=== PATIENT | male | born 1965 | race Caucasian/White ===

== ENCOUNTER 2016-06-29 07:15 | Emergency (ER) | payer BC ==
[2016-06-29] MEDS ORDERED: Albuterol 2.5 MG/3 ML NEB.SOL* (0.083%) INH ONE (08:19)
[2016-06-29] MEDS ORDERED: predniSONE TAB* 20 MG PO ONE ×2 (08:20→08:47)
--- NOTE | 2016-06-29 08:39 | UC ---
Respiratory Complaint HPI - HPI Summary HPI Summary: patient has hx of asthma, was experienceing increased wheezing and SOB this weekend due to exposure to fumes. presnets today SOB and wheezing, denies any other symptoms. - History of Current Complaint Chief Complaint: UCAsthma Stated Complaint: BREATHING COMPLAINT Time Seen by Provider: 06/29/16 08:12 Hx Obtained From: Patient Onset/Duration: Sudden Onset, Lasting Days Timing: Constant Severity Initially: Mild Severity Currently: Moderate Pain Intensity: 6 Pain Scale Used: 0-10 Numeric Character: Cough: Nonproductive Aggravating Factors: Allergens Alleviating Factors: Bronchodilator Associated Signs And Symptoms: Positive: Wheezing - Risk Factors Pulmonary Embolism Risk Factors: Negative Cardiac Risk Factors: Negative Pseudomonas Risk Factors: Negative Tuberculosis Risk Factors: Negative - Allergies/Home Medications Allergies/Adverse Reactions: Allergies Allergy/AdvReac Type Severity Reaction Status Date / Time Montelukast [From Singulair] Allergy See Comment Verified 06/29/16 07:49 Amoxicillin [From Augmentin] AdvReac Unknown Nausea And Verified 06/29/16 07:49 Vomiting Clavulanic Acid AdvReac Unknown Nausea And Verified 06/29/16 07:49 [From Augmentin] Vomiting dogs Allergy Mild Sneezing Uncoded 10/30/15 18:19 pollen Allergy Mild Sneezing Uncoded 10/30/15 18:19 ragweed Allergy Mild Sneezing Uncoded 10/30/15 18:19 trees Allergy Mild Sneezing Uncoded 10/30/15 18:19 PMH/Surg Hx/FS Hx/Imm Hx Previously Healthy: Yes Endocrine History Of: Denies: Diabetes, Thyroid Disease Cardiovascular History Of: Denies: Cardiac Disorders, Hypertension Respiratory History Of: Reports: COPD, Asthma - AND ALLERGIES GI/ History Of: Denies: Ulcer - Surgical History Surgical History: Yes Surgery Procedure, Year, and Place: Right knee repair - Family History Known Family History: Positive: None, Respiratory Disease - Social History Alcohol Use: Daily Alcohol Amount: 6-8 BEERS/DAY Substance Use Type: None Smoking Status (MU): Former Smoker Type: Cigars Amount Used/How Often: occ cigar Length of Time of Smoking/Using Tobacco: started at age 20 Have You Smoked in the Last Year: Yes When Did the Patient Quit Smoking/Using Tobacco: 2009-cigg - Immunization History Most Recent Influenza Vaccination: no Review of Systems Constitutional: Negative Skin: Negative Eyes: Negative ENT: Negative Respiratory: Shortness Of Breath, Cough Cardiovascular: Negative Gastrointestinal: Negative Genitourinary: Negative Motor: Negative Neurovascular: Negative Musculoskeletal: Negative Neurological: Negative Psychological: Negative All Other Systems Reviewed And Are Negative: Yes Physical Exam Triage Information Reviewed: Yes Appearance: No Pain Distress, Well-Nourished, Ill-Appearing Vital Signs: Initial Vital Signs Temp 97.9 F 06/29/16 07:37 Pulse 78 06/29/16 07:37 Resp 16 06/29/16 07:37 BP 147/90 06/29/16 07:37 Pulse Ox 95 06/29/16 07:37 Vital Signs Reviewed: Yes Eye Exam: Normal Eyes: Positive: Conjunctiva Clear ENT Exam: Normal ENT: Positive: Normal ENT inspection, Hearing grossly normal, Pharynx normal, TMs normal Dental Exam: Normal Neck exam: Normal Neck: Positive: Supple, Nontender, No Lymphadenopathy Respiratory: Positive: Chest non-tender, No accessory muscle use, Respiratory distress - mild, Stridor, Wheezing Cardiovascular Exam: Normal Cardiovascular: Positive: RRR, No Murmur, Pulses Normal Abdominal Exam: Normal Abdomen Description: Positive: Nontender, No Organomegaly, Soft Bowel Sounds: Positive: Present Musculoskeletal Exam: Normal Musculoskeletal: Positive: Strength Intact, ROM Intact, No Edema Neurological Exam: Normal Neurological: Positive: Alert, Muscle Tone Normal Psychological Exam: Normal Skin Exam: Normal UC Diagnostic Evaluation - Laboratory O2 Sat by Pulse Oximetry: 95 Respiratory Course/Dx - Course Course Of Treatment: hx obtained, exam performed, medication given with good results. medication prescribed. - Differential Dx/Diagnosis Differential Diagnosis/HQI/PQRI: Asthma, Bronchitis, Laryngitis, Sinusitis Provider Diagnoses: asthma exacerbation Discharge - Discharge Plan Condition: Stable Disposition: HOME Patient Education Materials: Asthma (ED) Additional Instructions: take the medication as prescribed. use your nebulizers every 4 hours as needed. Avoid the triggers as much as possible. follow upw ith any increase shortness of breath.
[2016-06-29 08:42] VITALS: BP 146/93
== END 2016-06-29 08:53 | disposition home or self-care (01) ==
LOC: UCEAST 07:15
DX: J45.901 Unspecified asthma with (acute) exacerbation (principal); Z88.1 Allergy status to other antibiotic agents; Z88.0 Allergy status to penicillin; Z88.8 Allergy status to other drugs, medicaments and biological substances; Z87.891 Personal history of nicotine dependence
CPT/HCPCS: 99212; G0463; J7512

== ENCOUNTER 2016-07-31 17:43 | Emergency (ER) | payer BC ==
[2016-07-31 18:47] VITALS: BP 126/71
[2016-07-31] MEDS ORDERED: predniSONE TAB* 20 MG PO ONE (19:11)
[2016-07-31] MEDS ORDERED: Albuterol/Ipratropium NEB.SOL* Albuterol 2.5 MG/Ipratropium 0.5 MG 3 ML INH ONE (19:11)
--- NOTE | 2016-07-31 19:11 | UC ---
Respiratory Complaint HPI - HPI Summary HPI Summary: chest congestion and tightness, using mdi and neb every hour no fevers - History of Current Complaint Chief Complaint: UCRespiratory Stated Complaint: URI Time Seen by Provider: 07/31/16 18:58 Hx Obtained From: Patient Onset/Duration: Sudden Onset, Lasting Days - 1, Still Present Timing: Constant Severity Initially: Moderate Severity Currently: Moderate Character: Cough: Nonproductive Aggravating Factors: Exertion, Deep Breaths, Recumbent Position Alleviating Factors: Bronchodilator Associated Signs And Symptoms: Positive: Wheezing. Negative: Dyspnea, Fever, Chills, Pleuritic Chest Pain, Hemoptysis, Dizziness, Calf Pain, Calf Swelling, Edema, URI, Nasal Congestion, Hoarseness, Sinus Discomfort - Allergies/Home Medications Allergies/Adverse Reactions: Allergies Allergy/AdvReac Type Severity Reaction Status Date / Time Montelukast [From Singulair] Allergy See Comment Verified 07/31/16 18:48 Amoxicillin [From Augmentin] AdvReac Unknown Nausea And Verified 07/31/16 18:48 Vomiting Clavulanic Acid AdvReac Unknown Nausea And Verified 07/31/16 18:48 [From Augmentin] Vomiting dogs Allergy Mild Sneezing Uncoded 07/31/16 18:48 pollen Allergy Mild Sneezing Uncoded 07/31/16 18:48 ragweed Allergy Mild Sneezing Uncoded 07/31/16 18:48 trees Allergy Mild Sneezing Uncoded 07/31/16 18:48 PMH/Surg Hx/FS Hx/Imm Hx Previously Healthy: No Endocrine History Of: Denies: Diabetes, Thyroid Disease Cardiovascular History Of: Denies: Cardiac Disorders, Hypertension Respiratory History Of: Reports: COPD, Asthma - AND ALLERGIES GI/ History Of: Denies: Ulcer - Surgical History Surgical History: Yes Surgery Procedure, Year, and Place: Right knee repair - Family History Known Family History: Positive: None, Respiratory Disease - Social History Occupation: Employed Full-time Lives: With Family Alcohol Use: Daily Alcohol Amount: 6-8 BEERS/DAY Substance Use Type: None Smoking Status (MU): Former Smoker Type: Cigars Amount Used/How Often: occ cigar Length of Time of Smoking/Using Tobacco: started at age 20 Have You Smoked in the Last Year: Yes When Did the Patient Quit Smoking/Using Tobacco: 2009-cigg - Immunization History Most Recent Influenza Vaccination: no Review of Systems Constitutional: Negative Skin: Negative Eyes: Negative ENT: Negative Respiratory: Shortness Of Breath, Cough Cardiovascular: Negative Gastrointestinal: Negative Genitourinary: Negative Motor: Negative Neurovascular: Negative Musculoskeletal: Negative Neurological: Negative Psychological: Negative All Other Systems Reviewed And Are Negative: Yes Physical Exam Triage Information Reviewed: Yes Appearance: No Pain Distress, Well-Nourished, Ill-Appearing - mild Vital Signs: Initial Vital Signs Temp 98.3 F 07/31/16 18:40 Pulse 82 07/31/16 18:40 Resp 20 07/31/16 18:40 BP 126/71 07/31/16 18:40 Pulse Ox 96 07/31/16 18:40 Vital Signs Reviewed: Yes Eye Exam: Normal Eyes: Positive: Conjunctiva Clear ENT Exam: Normal ENT: Positive: Normal ENT inspection, Hearing grossly normal, Pharynx normal, TMs normal. Negative: Nasal congestion, Nasal drainage, Tonsillar swelling, Tonsillar exudate, Trismus, Muffled/hoarse voice Neck exam: Normal Neck: Positive: Supple, Nontender, No Lymphadenopathy Respiratory Exam: Normal Respiratory: Positive: Chest non-tender, No respiratory distress, No accessory muscle use, Wheezing Cardiovascular Exam: Normal Cardiovascular: Positive: RRR, No Murmur, Pulses Normal, Brisk Capillary Refill Musculoskeletal Exam: Normal Musculoskeletal: Positive: Strength Intact, ROM Intact, No Edema Neurological Exam: Normal Neurological: Positive: Alert, Muscle Tone Normal, Fatigued Psychological Exam: Normal Skin Exam: Normal UC Diagnostic Evaluation - Laboratory O2 Sat by Pulse Oximetry: 96 Re-Evaluation - Re-Evaluation First Eval Change: Improved - inproved airmovement after neb and prednisone, encouraged pt to modify alcohol use and take a multivitamin with b supplement daily Respiratory Course/Dx - Course Course Of Treatment: prednisone, continue neb and MDI, multi vit with b vitamin , increase fluids, follow with pcp - Differential Dx/Diagnosis Differential Diagnosis/HQI/PQRI: Bronchitis, Exacerbation Of COPD, Laryngitis, Lower Resp Infection, Sinusitis Provider Diagnoses: Acute exacebation of COPD Discharge - Discharge Plan Condition: Stable Disposition: HOME Prescriptions: predniSONE TAB* [Deltasone TAB*] 10 mg PO DAILY #31 tab Patient Education Materials: Asthma (ED), How to Use a Nebulizer (ED), Bronchospasm (ED) Referrals: Marcellus Bello MD [Primary Care Provider] - 5 Days
== END 2016-07-31 20:00 | disposition home or self-care (01) ==
LOC: UCEAST 17:43
DX: J44.1 Chronic obstructive pulmonary disease with (acute) exacerbation (principal); Z88.1 Allergy status to other antibiotic agents; Z88.8 Allergy status to other drugs, medicaments and biological substances; Z87.891 Personal history of nicotine dependence
CPT/HCPCS: 99212; A9270-GY; G0463; J7512

== ENCOUNTER 2016-10-03 15:32 | Emergency (ER) | payer BC ==
[2016-10-03] MEDS ORDERED: methylPREDNISolone 125 MG* 2 ML VIAL IM ONE (16:53)
--- NOTE | 2016-10-03 16:59 | UC ---
Respiratory Complaint HPI - HPI Summary HPI Summary: patient has hx of asthma, was recently started on theophyline, take symbicort and duonebs as needed, he has done 3 duo nebs today withour relief. normally pain is in enter of chest when he is having trouble. ut pain in the sides of his chest bilateraly - History of Current Complaint Chief Complaint: UCAsthma Stated Complaint: COUGH Time Seen by Provider: 10/03/16 16:45 Hx Obtained From: Patient Onset/Duration: Gradual Onset, Lasting Days Timing: Constant Severity Initially: Moderate Severity Currently: Severe Character: Cough: Nonproductive Aggravating Factors: Exertion, Deep Breaths, Recumbent Position Alleviating Factors: Nothing Associated Signs And Symptoms: Positive: Dyspnea, Wheezing, URI Related History: Seasonal Allergies - Allergies/Home Medications Allergies/Adverse Reactions: Allergies Allergy/AdvReac Type Severity Reaction Status Date / Time Montelukast [From Singulair] Allergy See Comment Verified 10/03/16 16:34 Amoxicillin [From Augmentin] AdvReac Unknown Nausea And Verified 10/03/16 16:34 Vomiting Clavulanic Acid AdvReac Unknown Nausea And Verified 10/03/16 16:34 [From Augmentin] Vomiting dogs Allergy Mild Sneezing Uncoded 10/03/16 16:34 pollen Allergy Mild Sneezing Uncoded 10/03/16 16:34 ragweed Allergy Mild Sneezing Uncoded 10/03/16 16:34 trees Allergy Mild Sneezing Uncoded 10/03/16 16:34 Home Medications: Home Medications Theophylline [Theophylline ER] 10/03/16 [History] PMH/Surg Hx/FS Hx/Imm Hx Previously Healthy: Yes Endocrine History Of: Denies: Diabetes, Thyroid Disease Cardiovascular History Of: Denies: Cardiac Disorders, Hypertension Respiratory History Of: Reports: COPD, Asthma - AND ALLERGIES GI/ History Of: Denies: Ulcer - Surgical History Surgical History: Yes Surgery Procedure, Year, and Place: Right knee repair - Family History Known Family History: Positive: None, Respiratory Disease - Social History Alcohol Use: Occasionally Alcohol Amount: 6-8 BEERS/DAY Substance Use Type: None Smoking Status (MU): Former Smoker Type: Cigars Amount Used/How Often: occ cigar Length of Time of Smoking/Using Tobacco: started at age 20 Have You Smoked in the Last Year: Yes When Did the Patient Quit Smoking/Using Tobacco: 2010-cig - Immunization History Most Recent Influenza Vaccination: no Review of Systems Constitutional: Negative Skin: Negative Eyes: Negative ENT: Negative Respiratory: Shortness Of Breath, Cough Cardiovascular: Negative Gastrointestinal: Negative Genitourinary: Negative Motor: Negative Neurovascular: Negative Musculoskeletal: Negative Neurological: Negative Psychological: Negative All Other Systems Reviewed And Are Negative: Yes Physical Exam Triage Information Reviewed: Yes Appearance: Well-Nourished, Ill-Appearing, Pain Distress Vital Signs: Initial Vital Signs Temp 97.2 F 10/03/16 16:28 Pulse 88 10/03/16 16:28 Resp 18 10/03/16 16:28 BP 141/86 10/03/16 16:28 Pulse Ox 96 10/03/16 16:28 Vital Signs Reviewed: Yes Eye Exam: Normal Eyes: Positive: Conjunctiva Clear ENT Exam: Normal ENT: Positive: Hearing grossly normal, Pharynx normal, TMs normal Dental Exam: Normal Neck exam: Normal Neck: Positive: Supple, Nontender, No Lymphadenopathy Respiratory: Positive: Respiratory distress - moderate, winded with talking, Rhonchi, Stridor, Wheezing, Expiration, Inspiration Cardiovascular Exam: Normal Cardiovascular: Positive: RRR, No Murmur, Pulses Normal Abdominal Exam: Normal Abdomen Description: Positive: Nontender, No Organomegaly, Soft Bowel Sounds: Positive: Present Musculoskeletal Exam: Normal Musculoskeletal: Positive: Strength Intact, ROM Intact, No Edema Neurological Exam: Normal Neurological: Positive: Alert, Muscle Tone Normal Psychological Exam: Normal Skin Exam: Normal UC Diagnostic Evaluation - Laboratory O2 Sat by Pulse Oximetry: 96 Respiratory Course/Dx - Course Course Of Treatment: hx obtained, exam performed, meds reviewed, chest xray neg and solumedrol given still SOB and wheezing noted. albuterol neb given. - Differential Dx/Diagnosis Differential Diagnosis/HQI/PQRI: Asthma, Bronchitis, Influenza, Laryngitis, Sinusitis Provider Diagnoses: asthma exacerbation Discharge - Discharge Plan Condition: Stable Disposition: HOME Prescriptions: predniSONE TAB* [Deltasone TAB*] 20 mg PO DAILY #18 tab Patient Education Materials: Moderate and Severe Persistent Asthma (ED) Referrals: Marcellus Bello MD [Primary Care Provider] - Additional Instructions: 1. continue with the current medications as prescribed. 2. start the prednisone tomorrow 3. Rest and do not over exert yourself until breathing improves. 4. Follow up with your doctor next week, or go to the ED if your breathing gets worse.
--- NOTE | 2016-10-03 17:17 | RAD ---
INDICATION: Shortness of breath and cough. COMPARISON: Comparison is made with a prior chest x-ray study from July 10, 2015. TECHNIQUE: Dual-energy PA and lateral views of the chest were obtained. FINDINGS: The heart is within normal limits in size. Mediastinal and hilar contours appear within normal limits. The lungs are clear. No pleural effusion is present. IMPRESSION: NO EVIDENCE FOR ACTIVE CARDIOPULMONARY DISEASE.
[2016-10-03] MEDS ORDERED: Albuterol 2.5 MG/3 ML NEB.SOL* (0.083%) INH ONE (17:40)
[2016-10-03 18:15] VITALS: BP 132/85
== END 2016-10-03 18:07 | disposition home or self-care (01) ==
LOC: UCEAST 15:32
DX: J45.901 Unspecified asthma with (acute) exacerbation (principal); J44.9 Chronic obstructive pulmonary disease, unspecified; Z87.891 Personal history of nicotine dependence; Z88.3 Allergy status to other anti-infective agents
CPT/HCPCS: 71020; 96372; 99212; G0463; J2930

== ENCOUNTER 2017-05-16 11:32 | Emergency (ER) | payer BC ==
[2017-05-16 13:06] VITALS: BP 128/75
--- NOTE | 2017-05-16 13:55 | RAD ---
Indication: Foreign body in the nailbed. 3 views of the right index finger demonstrates no evidence of radiopaque foreign body. IMPRESSION: No evidence of radiopaque foreign body is identified.
--- NOTE | 2017-05-16 14:03 | UC ---
Skin Complaint HPI - HPI Summary HPI Summary: Patient presents with complaints of redness, pain and swelling of his right index finger x 1-2 days. He states that he did run a sharp edge under the side of the nail and did not feel anything sharp under there, he also states that afterwards he did express a small amount of puss and the finger felt better for about 1 day and then it started to swell up again and get red, and painful. He reports some pain in the finger when he bends its, but denies fever, chills, or any red streaks coming up the finger. - History of Current Complaint Hx Obtained From: Patient Onset/Duration: Gradual Onset, Lasting Days Skin Exposure Onset/Duration: Days Ago Onset Severity: Mild Current Severity: Moderate Location: Discrete, Hand (Right) - lateral edge of right index finger. Aggravating Factor(s): Touch Alleviating Factor(s): Nothing Associated Signs & Symptoms: Positive: Negative <Cierra Paige - Last Filed: 05/16/17 13:54> <Lily Dubon - Last Filed: 05/16/17 14:40> - History of Current Complaint Chief Complaint: UCUpperExtremity Time Seen by Provider: 05/16/17 13:13 Stated Complaint: INFECTED FINGER - Allergy/Home Medications Allergies/Adverse Reactions: Allergies Allergy/AdvReac Type Severity Reaction Status Date / Time Montelukast [From Singulair] Allergy See Comment Verified 05/16/17 12:58 Amoxicillin [From Augmentin] AdvReac Unknown Nausea And Verified 05/16/17 12:58 Vomiting Clavulanic Acid AdvReac Unknown Nausea And Verified 05/16/17 12:58 [From Augmentin] Vomiting dogs Allergy Mild Sneezing Uncoded 05/16/17 12:58 pollen Allergy Mild Sneezing Uncoded 05/16/17 12:58 ragweed Allergy Mild Sneezing Uncoded 05/16/17 12:58 trees Allergy Mild Sneezing Uncoded 05/16/17 12:58 Review of Systems Constitutional: Negative Skin: Negative, Other - reness, swelling and pain of right index finger. Eyes: Negative ENT: Negative Respiratory: Negative Cardiovascular: Negative Gastrointestinal: Negative Genitourinary: Negative Motor: Negative Neurovascular: Negative Musculoskeletal: Negative Neurological: Negative Psychological: Negative Is Patient Immunocompromised?: No All Other Systems Reviewed And Are Negative: Yes <Cierra Paige - Last Filed: 05/16/17 13:54> PMH/Surg Hx/FS Hx/Imm Hx Previously Healthy: Yes - Surgical History Surgical History: Yes Surgery Procedure, Year, and Place: Right knee repair - Family History Known Family History: Positive: None, Respiratory Disease - Social History Occupation: Employed Full-time Lives: Alone Alcohol Use: Daily Alcohol Amount: 6-8 BEERS/DAY Substance Use Type: None Smoking Status (MU): Light Every Day Tobacco Smoker Type: Cigars Amount Used/How Often: 5-6 cig/ day Length of Time of Smoking/Using Tobacco: started at age 20 Have You Smoked in the Last Year: Yes When Did the Patient Quit Smoking/Using Tobacco: 2009-cigg - Immunization History Most Recent Influenza Vaccination: no Most Recent Tetanus Shot: pt unsure <Cierra Paige - Last Filed: 05/16/17 13:54> Physical Exam Triage Information Reviewed: Yes Appearance: Well-Appearing Vital Signs: Initial Vital Signs Temp 99.4 F 05/16/17 13:00 Pulse 100 05/16/17 13:00 Resp 18 05/16/17 13:00 BP 128/75 05/16/17 13:00 Pulse Ox 99 05/16/17 13:00 Vital Signs Reviewed: Yes Eye Exam: Normal ENT Exam: Normal Neck exam: Normal Neck: Positive: 1 Respiratory Exam: Normal Cardiovascular Exam: Normal Musculoskeletal Exam: Normal Skin Exam: Normal Skin: Positive: Other - right index finger, redness, swelling, and tenderness to touch of the right medial edge. no area on fluctuance. rom intact with no joint pain with flexion or extension. neruo;no deficits noted. <Cierra Paige - Last Filed: 05/16/17 13:54> Vital Signs: Initial Vital Signs Temp 99.4 F 05/16/17 13:00 Pulse 100 05/16/17 13:00 Resp 18 05/16/17 13:00 BP 128/75 05/16/17 13:00 Pulse Ox 99 05/16/17 13:00 <Lily Dubon - Last Filed: 05/16/17 14:40> Course/Dx - Course Course Of Treatment: Patient presents with redness, pain and swelling of the right index finger the medial edge.Xrays were obtained and there was no obvious foreign body present. No area of fluctuance to I+D. The patient was started on Keflex for paronychia. He as told to go to the ER if his symtpoms got worse. He verbalzided understanding and was in agreement with the discharge plan. - Differential Diagnoses - Skin Complaint Differential Diagnoses: Other - paronchyia - Diagnoses Provider Diagnoses: paronychia <Cierra Paige - Last Filed: 05/16/17 13:54> Discharge <Cierra Paige - Last Filed: 05/16/17 13:54> <Lily Dubon - Last Filed: 05/16/17 14:40> - Discharge Plan Condition: Stable Disposition: HOME Prescriptions: Cephalexin CAP* [Keflex CAP*] 500 mg PO QID #40 cap Patient Education Materials: Paronychia (ED) Referrals: Marcellus Bello MD [Primary Care Provider] - Additional Instructions: If your symptoms worsen go to the er. Attestations User Type: Provider - I was available for consult. This patient was seen by the JOJO. The patient was not presented to, seen by, or examined by me. -Jamie <Lily Dubon - Last Filed: 05/16/17 14:40>
== END 2017-05-16 14:00 | disposition home or self-care (01) ==
LOC: UCEAST 11:32
DX: L03.011 Cellulitis of right finger (principal); Z88.3 Allergy status to other anti-infective agents; F17.210 Nicotine dependence, cigarettes, uncomplicated
CPT/HCPCS: 73140; 99212; G0463

== ENCOUNTER 2017-07-09 17:51 | Emergency (ER) | payer BC ==
[2017-07-09 19:27] VITALS: BP 141/90
[2017-07-09] MEDS ORDERED: Albuterol/Ipratropium NEB.SOL* Albuterol 2.5 MG/Ipratropium 0.5 MG 3 ML INH ONE (20:16)
[2017-07-09] MEDS ORDERED: methylPREDNISolone 125 MG* 2 ML VIAL IV ONE (20:16)
[2017-07-09] MEDS ORDERED: Azithromycin TAB* 250 MG PO ONE (20:17)
--- NOTE | 2017-07-09 20:24 | UC ---
Asthma HPI - HPI Summary HPI Summary: 52 yo Wm h/o COPD and Asthma c/o chest tightness and increasing SOB in spite of using his nebs and inhaler. Cough is worsening with some yellow green sputum - History of Current Complaint Chief Complaint: UCRespiratory Stated Complaint: URI Time Seen by Provider: 07/09/17 20:10 Hx Obtained From: Patient Onset/Duration: Lasting Days, Worse Since Timing: Constant Initial Severity: Moderate Pain Intensity: 0 - Allergy/Home Medications Allergies/Adverse Reactions: Allergies Allergy/AdvReac Type Severity Reaction Status Date / Time amoxicillin [From Augmentin] Allergy Nausea And Verified 07/09/17 19:30 Vomiting clavulanic acid Allergy Nausea And Verified 07/09/17 19:30 [From Augmentin] Vomiting montelukast [From Singulair] Allergy See Comment Verified 07/09/17 19:30 dogs Allergy Mild Sneezing Uncoded 07/09/17 19:30 pollen Allergy Mild Sneezing Uncoded 07/09/17 19:30 ragweed Allergy Mild Sneezing Uncoded 07/09/17 19:30 trees Allergy Mild Sneezing Uncoded 07/09/17 19:30 PMH/Surg Hx/FS Hx/Imm Hx Respiratory History: COPD, Asthma, Bronchitis - Surgical History Surgical History: Yes Surgery Procedure, Year, and Place: Right knee repair - Family History Known Family History: Positive: None, Respiratory Disease - Social History Alcohol Use: Occasionally Alcohol Amount: 6-8 BEERS/DAY Substance Use Type: None Smoking Status (MU): Light Every Day Tobacco Smoker Type: Cigars Amount Used/How Often: 5-6 cig/ day Length of Time of Smoking/Using Tobacco: started at age 20 Have You Smoked in the Last Year: Yes When Did the Patient Quit Smoking/Using Tobacco: cigg - Immunization History Most Recent Influenza Vaccination: no Most Recent Tetanus Shot: pt unsure Review of Systems Constitutional: Negative Skin: Negative Eyes: Negative ENT: Negative Respiratory: Shortness Of Breath, Cough Cardiovascular: Negative Gastrointestinal: Negative Genitourinary: Negative Motor: Negative Neurovascular: Negative Musculoskeletal: Negative Neurological: Negative Psychological: Negative All Other Systems Reviewed And Are Negative: Yes Physical Exam Triage Information Reviewed: Yes Vital Signs: Initial Vital Signs Temp 36.9 C 07/09/17 19:24 Pulse 96 07/09/17 19:24 Resp 24 07/09/17 19:24 BP 141/90 07/09/17 19:24 Pulse Ox 97 07/09/17 19:24 Eye Exam: Normal ENT Exam: Normal Dental Exam: Normal Neck exam: Normal Neck: Positive: 1 Respiratory Exam: Normal Respiratory: Positive: Lungs clear, Other: - SHALLOW breathing Cardiovascular Exam: Normal Abdominal Exam: Normal Musculoskeletal Exam: Normal Neurological Exam: Normal Psychological Exam: Normal Skin Exam: Normal Asthma Course/Dx - Differential Dx/Diagnosis Provider Diagnoses: asthma exacerbation. COPD exacerbation Discharge - Discharge Plan Condition: Stable Disposition: HOME Patient Education Materials: COPD (Chronic Obstructive Pulmonary Disease) (ED) , Moderate and Severe Persistent Asthma (ED) Referrals: Marcellus Bello MD [Primary Care Provider] -
[2017-07-09] MEDS ORDERED: predniSONE TAB* 20 MG PO ONE (20:50)
== END 2017-07-09 21:19 | disposition home or self-care (01) ==
LOC: UCEAST 17:51
DX: J44.1 Chronic obstructive pulmonary disease with (acute) exacerbation (principal); J45.901 Unspecified asthma with (acute) exacerbation; F17.210 Nicotine dependence, cigarettes, uncomplicated
CPT/HCPCS: 99212; A9270-GY; G0463; J2930; J7512

== ENCOUNTER 2017-09-03 19:55 | Emergency (ER) | payer BC ==
[2017-09-03] MEDS ORDERED: predniSONE TAB* 20 MG PO ONE ×2 (21:37→22:12)
[2017-09-03] MEDS ORDERED: Ipratropium 0.5MG/2.5ML NEB* 0.5 MG/2.5 ML NEB.SOLN INH ONE (21:37)
[2017-09-03] MEDS ORDERED: Albuterol/Ipratropium NEB.SOL* Albuterol 2.5 MG/Ipratropium 0.5 MG 3 ML INH ONE (21:37)
[2017-09-03 21:44] VITALS: BP 158/82
--- NOTE | 2017-09-03 21:45 | UC ---
Respiratory Complaint HPI - HPI Summary HPI Summary: States he started to feel chest congestion and wheezing since this morning and has been using his duoneb nebulizations in the morning and all afternoon. States last nebulization was around 90 minutes ago and he continues without relief. New puppy in the house, known to be allergic to dogs but has already another dog for the past 9 years. He quit smoking about 3 weeks ago. - History of Current Complaint Chief Complaint: UCRespiratory Stated Complaint: COUGH,CONGESTED Time Seen by Provider: 09/03/17 21:25 Hx Obtained From: Patient Onset/Duration: Sudden Onset, Lasting Hours Timing: Constant Severity Initially: Moderate Severity Currently: Moderate Pain Intensity: 1 Alleviating Factors: Nothing Associated Signs And Symptoms: Positive: Wheezing Related History: Seasonal Allergies - Risk Factors Pulmonary Embolism Risk Factors: Negative Cardiac Risk Factors: Smoking Pseudomonas Risk Factors: Negative Tuberculosis Risk Factors: Negative - Allergies/Home Medications Allergies/Adverse Reactions: Allergies Allergy/AdvReac Type Severity Reaction Status Date / Time amoxicillin [From Augmentin] Allergy Nausea And Verified 09/03/17 21:28 Vomiting clavulanic acid Allergy Nausea And Verified 09/03/17 21:28 [From Augmentin] Vomiting montelukast [From Singulair] Allergy See Comment Verified 09/03/17 21:28 dogs Allergy Mild Sneezing Uncoded 09/03/17 21:28 pollen Allergy Mild Sneezing Uncoded 09/03/17 21:28 ragweed Allergy Mild Sneezing Uncoded 09/03/17 21:28 trees Allergy Mild Sneezing Uncoded 09/03/17 21:28 PMH/Surg Hx/FS Hx/Imm Hx Previously Healthy: Yes Respiratory History: Asthma - Surgical History Surgical History: Yes Surgery Procedure, Year, and Place: Right knee repair - Family History Known Family History: Positive: None, Respiratory Disease - Social History Alcohol Use: Occasionally Alcohol Amount: 6-8 BEERS/DAY Substance Use Type: None Smoking Status (MU): Light Every Day Tobacco Smoker Type: Cigars Amount Used/How Often: 5-6 cig/ day Length of Time of Smoking/Using Tobacco: started at age 20 Have You Smoked in the Last Year: Yes When Did the Patient Quit Smoking/Using Tobacco: 2009-cigg - Immunization History Most Recent Influenza Vaccination: no Most Recent Tetanus Shot: pt unsure Review of Systems Constitutional: Negative Respiratory: Shortness Of Breath, Cough All Other Systems Reviewed And Are Negative: Yes Physical Exam Triage Information Reviewed: Yes Appearance: Well-Nourished Vital Signs: Initial Vital Signs Temp 98.6 F 09/03/17 21:23 Pulse 91 09/03/17 21:23 Resp 20 09/03/17 21:23 BP 158/82 09/03/17 21:23 Pulse Ox 96 09/03/17 21:23 Vital Signs Reviewed: Yes Eyes: Positive: Conjunctiva Clear ENT: Positive: Hearing grossly normal, Pharynx normal, TMs normal, Uvula midline Neck: Positive: Supple, Nontender, No Lymphadenopathy Respiratory: Positive: Chest non-tender, No accessory muscle use, Wheezing Cardiovascular: Positive: RRR, No Murmur, Pulses Normal, Brisk Capillary Refill UC Diagnostic Evaluation - Laboratory O2 Sat by Pulse Oximetry: 96 Respiratory Course/Dx - Course Course Of Treatment: Patient was started on prednisone and continued with ipratropium bromide/albuterol nebulization. Continue oral hydration and Prednisone with breakfast for 5 days. Avoid allergens - Differential Dx/Diagnosis Provider Diagnoses: Bronchial asthma exacerbation Discharge - Sign-Out/Discharge Documenting (check all that apply): Discharge - Discharge Plan Condition: Good Disposition: HOME Patient Education Materials: Asthma (ED), Prednisone (By mouth) Referrals: Marcellus Bello MD [Primary Care Provider] - - Billing Disposition and Condition Condition: GOOD Disposition: HOME
== END 2017-09-03 22:34 | disposition home or self-care (01) ==
LOC: UCEAST 19:55
DX: J45.901 Unspecified asthma with (acute) exacerbation (principal); Z88.1 Allergy status to other antibiotic agents; Z88.0 Allergy status to penicillin; Z88.8 Allergy status to other drugs, medicaments and biological substances; F17.290 Nicotine dependence, other tobacco product, uncomplicated
CPT/HCPCS: 99213; A9270-GY; G0463; J7512

== ENCOUNTER 2018-01-13 18:50 | Emergency (ER) | payer BC ==
[2018-01-13 19:33] VITALS: BP 167/105
[2018-01-13] MEDS ORDERED: predniSONE TAB* 20 MG PO ONE (19:50)
--- NOTE | 2018-01-13 19:50 | UC ---
Respiratory Complaint HPI - HPI Summary HPI Summary: This patient is a 52 year old M presenting to [facility] with a chief complaint of trouble breathing since 9 days ago. Pt states that due to his asthma and allergies he has had SOB especially in the morning. He has been using his rescue inhaler more than prescribed and has been using his at home neb with some relief. The patient rates the pain 0/10 in severity. Patient reports productive cough and chest congestion. Patient denies rhinorrhea, sore throat, fever, and chills. Pt states he usually gets steroids for this. - History of Current Complaint Chief Complaint: UCRespiratory Stated Complaint: COUGH Time Seen by Provider: 01/13/18 19:45 Hx Obtained From: Patient Onset/Duration: Lasting Days - 9, Still Present Timing: Constant Severity Initially: Mild Severity Currently: Moderate Pain Intensity: 0 Pain Scale Used: 0-10 Numeric Character: Cough: Nonproductive Aggravating Factors: Allergens Alleviating Factors: Bronchodilator Associated Signs And Symptoms: Negative: Fever, Chills - Allergies/Home Medications Allergies/Adverse Reactions: Allergies Allergy/AdvReac Type Severity Reaction Status Date / Time amoxicillin [From Augmentin] Allergy Nausea And Verified 01/13/18 19:35 Vomiting clavulanic acid Allergy Nausea And Verified 01/13/18 19:35 [From Augmentin] Vomiting montelukast [From Singulair] Allergy Altered Verified 01/13/18 19:35 Mental Status dogs Allergy Mild Sneezing Uncoded 09/03/17 21:28 pollen Allergy Mild Sneezing Uncoded 09/03/17 21:28 ragweed Allergy Mild Sneezing Uncoded 09/03/17 21:28 trees Allergy Mild Sneezing Uncoded 09/03/17 21:28 PMH/Surg Hx/FS Hx/Imm Hx Cardiovascular History: Hypertension Respiratory History: Asthma - Surgical History Surgical History: Yes Surgery Procedure, Year, and Place: Right knee repair - Family History Known Family History: Positive: Respiratory Disease - Social History Occupation: Employed Full-time Alcohol Use: Daily Alcohol Amount: 6-8 BEERS/DAY Substance Use Type: None Smoking Status (MU): Former Smoker Type: Cigars Amount Used/How Often: 5-6 cig/ day Length of Time of Smoking/Using Tobacco: started at age 20 Have You Smoked in the Last Year: Yes When Did the Patient Quit Smoking/Using Tobacco: 2009-cigg - Immunization History Most Recent Influenza Vaccination: no Most Recent Tetanus Shot: pt unsure Review of Systems Constitutional: Negative - fever Respiratory: Shortness Of Breath, Cough, Other - chest congestion All Other Systems Reviewed And Are Negative: Yes Physical Exam Triage Information Reviewed: Yes Appearance: Well-Appearing, No Pain Distress, Well-Nourished Vital Signs: Initial Vital Signs Temp 98.5 F 01/13/18 19:27 Pulse 74 01/13/18 19:27 Resp 18 01/13/18 19:27 BP 167/105 01/13/18 19:27 Pulse Ox 98 01/13/18 19:27 Vital Signs Reviewed: Yes Eyes: Positive: Conjunctiva Clear ENT: Positive: Pharynx normal, TMs normal. Negative: Nasal congestion Neck: Positive: Supple, Nontender Respiratory: Positive: No accessory muscle use, Wheezing - faint both lung covarrubias Cardiovascular: Positive: RRR, No Murmur Abdomen Description: Positive: Nontender Musculoskeletal: Positive: Strength Intact, ROM Intact, No Edema Neurological: Positive: Alert, Muscle Tone Normal Psychological: Positive: Age Appropriate Behavior Skin Exam: Normal UC Diagnostic Evaluation - Laboratory O2 Sat by Pulse Oximetry: 98 Respiratory Course/Dx - Course Course Of Treatment: 52 yrold with asthma exacerbation. FU with PMD for BP as well. Prednisone script given He states he has plenty of nebs, and a machine from PMD already. - Differential Dx/Diagnosis Provider Diagnoses: asthma exacerbation. hypertension Discharge - Sign-Out/Discharge Documenting (check all that apply): Patient Departure All imaging exams completed and their final reports reviewed: No Studies - Discharge Plan Condition: Good Disposition: HOME Prescriptions: predniSONE TAB* [Deltasone 20 MG TAB*] 40 mg PO DAILY #8 tab Patient Education Materials: Asthma (ED), Hypertension (ED) Referrals: Marcellus Bello MD [Primary Care Provider] - 2 Days - Attestation Statements Document Initiated by Scribe: Yes Documenting Scribe: Augusto Justice Provider For Whom Scribe is Documenting (Include Credential): Garth Randolph MD Scribe Attestation: Augusto Lee , scribed for Garth Randolph MD on 01/13/18 at 2006.
== END 2018-01-13 20:05 | disposition home or self-care (01) ==
LOC: UCEAST 18:50
DX: J45.901 Unspecified asthma with (acute) exacerbation (principal); I10 Essential (primary) hypertension; Z88.0 Allergy status to penicillin; Z88.8 Allergy status to other drugs, medicaments and biological substances; Z91.09 Other allergy status, other than to drugs and biological substances; Z87.891 Personal history of nicotine dependence
CPT/HCPCS: 99212; G0463; J7512

== ENCOUNTER 2019-02-20 12:00 | Emergency (ER) | payer BC ==
[2019-02-20 14:31] LABS: Hematocrit 48 % (42-52); Hemoglobin 16.8 g/dL (14.0-18.0); Mean Corpuscular HGB Conc 35 g/dL (31-36); Mean Corpuscular Hemoglobin 33 pg (27-31); Mean Corpuscular Volume 96 fL (80-94); Mean Platelet Volume 7.9 fL (7.4-10.4); Platelet Count 212 10^3/uL (150-450); Red Blood Count 5.05 10^6 /uL (4.18-5.48); Red Cell Distribution Width 13 % (10-15); White Blood Count 10.5 10^3/uL (3.5-10.8)
[2019-02-20 14:52] LABS: Albumin 4.6 g/dL (3.2-5.2); Albumin/Globulin Ratio 1.6 (1-3); BUN/Creatinine Ratio 15.2 (8-20); Calcium 9.5 mg/dL (8.6-10.3); EGFR African American 104.5 (>60); EGFR Non-African American 86.4 (>60); Globulin 2.9 g/dL (2-4); Potassium 4.4 mmol/L (3.5-5.0); Total Bilirubin 0.7 mg/dL (0.2-1.0); Total Protein 7.5 g/dL (6.4-8.9)
[2019-02-20 14:57] LABS: ABS Basophils 0.1 10^3/ul (0-0.2); ABS Eosinophils 2.8 10^3/ul (0-0.6); ABS Lymphocytes 1.9 10^3/ul (1.0-4.8); ABS Monocytes 0.9 10^3/ul (0-0.8); ABS Neutrophils 4.8 10^3/ul (1.5-7.7); Eosinophil % 26.9 %; Lymphocyte % 18.2 %; Nucleated Red Blood Cells % 0.1
[2019-02-20] MEDS ORDERED: Albuterol/Ipratropium NEB.SOL* Albuterol 2.5 MG/Ipratropium 0.5 MG 3 ML INH ONE (15:23)
[2019-02-20] MEDS ORDERED: Dexamethasone IV* 4 MG/ML 1 ML (4 MG) IV SLOW PU ONE (15:23)
--- NOTE | 2019-02-20 15:27 | ED ---
Shortness of Breath - HPI Summary HPI Summary: Patient is a 53 y/o M w/ Hx of COPD who presents to [facility] with complaints of SOB. He states that the Wednesday before 2018, he had been having nasal discharge. He was evaluated by medical provider, who prescribed him azithromycin. Antibiotic provided no relief in Sx. He was evaluated once more and prescribed a ten-day antibiotic with ten days of prednisone. He reports some relief with these medications, but Sx were still present. PCP ordered sinus CT, which he had done six days ago. He claims that he was found to have a fungal infection in his sinuses and that he needs to follow up with ENT. Over the past few days, patient has had increased fatigue and SOB. SOB is exacerbated by exertion. He notes a minimal cough and endorses wheezes. He states that he has had chest tightness as well for the past few days, with its worst being yesterday, but states that he has not had any today. He denies fever , chills, sweats, body aches, pain, tingling, or numbness in extremities or jaws. He reports no Hx of HTN, HLD, or diabetes. FMHx of cardiac disease is noted. He is a current smoker and reports occasional alcohol consumption. Patient does not report any fever, chills, erythema of eyes, sore throat, abdominal pain, N/V, dysuria, hematuria, myalgia, edema, rash, and dizziness. On triage, pain is rated 3/10, nothing is noted to aggravate Sx, nothing is noted to alleviate Sx. Home medications and allergies are reviewed. - History of Current Complaint Chief Complaint: EDUpperRespComplaint Time Seen by Provider: 02/20/19 13:51 Hx Obtained From: Patient Onset/Duration: Lasting Days, Resolved - chest tightness Timing: Constant Aggravating Factors: Other - exertion Alleviating Factors: Other - prescribed meds Associated Signs & Symptoms: Wheezing, Nasal Congestion - Allergy/Home Medications Allergies/Adverse Reactions: Allergies Allergy/AdvReac Type Severity Reaction Status Date / Time amoxicillin [From Augmentin] Allergy Nausea And Verified 01/13/18 19:35 Vomiting clavulanic acid Allergy Nausea And Verified 01/13/18 19:35 [From Augmentin] Vomiting montelukast [From Singulair] Allergy Altered Verified 01/13/18 19:35 Mental Status dogs Allergy Mild Sneezing Uncoded 09/03/17 21:28 pollen Allergy Mild Sneezing Uncoded 09/03/17 21:28 ragweed Allergy Mild Sneezing Uncoded 09/03/17 21:28 trees Allergy Mild Sneezing Uncoded 09/03/17 21:28 Home Medications: Home Medications Ipratropium Br (Nf)0.03% Nasal [Ipratropium Mcgraws] 0.06 % BOTH NARES BID 02/20 [History Confirmed 02/20/19] Umeclidinium 62.5 MDI(NF) [Incruse ELLIPTA MDI (NF)] 1 inh INH DAILY 02/20/19 [ History Confirmed 02/20/19] PMH/Surg Hx/FS Hx/Imm Hx Endocrine/Hematology History: Denies: Hx Diabetes, Hx Thyroid Disease Cardiovascular History: Denies: Hx Hypertension Respiratory History: Reports: Hx Asthma - AND ALLERGIES, Hx Chronic Obstructive Pulmonary Disease (COPD) GI History: Denies: Hx Ulcer - Cancer History Cancer Type, Location and Year: none - Surgical History Surgery Procedure, Year, and Place: Right knee repair Infectious Disease History: No Infectious Disease History: Denies: Hx Clostridium Difficile, Hx Hepatitis, Hx Human Immunodeficiency Virus (HIV), Hx of Known/Suspected MRSA, Hx Shingles, Hx Tuberculosis, Hx Known/ Suspected VRE, Hx Known/Suspected VRSA, History Other Infectious Disease, Traveled Outside the in Last 30 Days - Family History Known Family History: Positive: Respiratory Disease - Social History Alcohol Use: Daily Alcohol Amount: 6-8 BEERS/DAY Substance Use Type: Reports: None Hx Tobacco Use: No Smoking Status (MU): Current Some Day Smoker Type: Cigars Amount Used/How Often: 5-6 cig/ day Length of Time of Smoking/Using Tobacco: started at age 20 Have You Smoked in the Last Year: Yes Review of Systems Positive: Fatigue. Negative: Fever, Chills Negative: Erythema Positive: Nasal Discharge. Negative: Sore Throat Positive: Chest Pain - tightness Respiratory: Other - positive - wheeze Positive: Shortness Of Breath, Cough Negative: Abdominal Pain, Vomiting, Nausea Negative: dysuria, hematuria Negative: Myalgia, Edema Negative: Rash Neurological: Other - negative - dizziness Negative: Paresthesia - of extremities, jaw , Numbness - of extremities, jaw All Other Systems Reviewed And Are Negative: Yes Physical Exam - Summary Physical Exam Summary: Constitutional: Well-developed, Well-nourished, Alert. (-) Distressed Skin: Warm, Dry HENT: Normocephalic; Atraumatic Eyes: Conjunctiva normal Neck: Musculoskeletal ROM normal neck. (-) JVD, (-) Stridor, (-) Tracheal deviation Cardio: Rhythm regular, rate normal, Heart sounds normal; Intact distal pulses; The pedal pulses are 2+ and symmetric. Radial pulses are 2+ and symmetric. (-) Murmur Pulmonary/Chest wall: Inspiratory and Expiratory Wheezes. Effort normal. (-) Respiratory distress, (-) Rales Abd: Soft, (-) tenderness, (-) Distension, (-) Guarding, (-) Rebound Musculoskeletal: (-) Edema Lymph: (-) Cervical adenopathy Neuro: Alert, Oriented x3 Psych: Mood and affect Normal Triage Information Reviewed: Yes Vital Signs On Initial Exam: Initial Vitals Temp Pulse Resp BP Pulse Ox 98.4 F 100 20 151/103 94 02/20/19 12:05 02/20/19 12:05 02/20/19 12:05 02/20/19 12:05 02/20/19 12:05 Vital Signs Reviewed: Yes Diagnostics - Vital Signs Vital Signs Temp Pulse Resp BP Pulse Ox 02/20/19 12:05 98.4 F 100 20 151/103 94 - Laboratory Lab Results: Lab Results 02/20/19 02/20/19 02/20/19 Range/Units 14:19 14:19 14:19 WBC 10.5 (3.5-10.8) 10^3/uL RBC 5.05 (4.18-5.48) 10^6 /uL Hgb 16.8 (14.0-18.0) g/dL Hct 48 (42-52) % MCV 96 H (80-94) fL MCH 33 H (27-31) pg MCHC 35 (31-36) g/dL RDW 13 (10-15) % Plt Count 212 (150-450) 10^3/uL MPV 7.9 (7.4-10.4) fL Neut % (Auto) 45.8 % Lymph % (Auto) 18.2 % Cannon % (Auto) 8.5 % Eos % (Auto) 26.9 % Baso % (Auto) 0.6 % Absolute Neuts (auto) 4.8 (1.5-7.7) 10^3/ul Absolute Lymphs (auto) 1.9 (1.0-4.8) 10^3/ul Absolute Monos (auto) 0.9 H (0-0.8) 10^3/ul Absolute Eos (auto) 2.8 H (0-0.6) 10^3/ul Absolute Basos (auto) 0.1 (0-0.2) 10^3/ul Absolute Nucleated RBC 0.0 10^3/ul Nucleated RBC % 0.1 Sodium 134 L (135-145) mmol/L Potassium 4.4 (3.5-5.0) mmol/L Chloride 104 (101-111) mmol/L Carbon Dioxide 21 L (22-32) mmol/L Anion Gap 9 (2-11) mmol/L BUN 14 (6-24) mg/dL Creatinine 0.92 (0.67-1.17) mg/dL Est GFR ( Amer) 104.5 (>60) Est GFR (Non-Af Amer) 86.4 (>60) BUN/Creatinine Ratio 15.2 (8-20) Glucose 96 (70-100) mg/dL Lactic Acid 0.7 (0.5-2.0) mmol/L Calcium 9.5 (8.6-10.3) mg/dL Total Bilirubin 0.70 (0.2-1.0) mg/dL AST 55 H (13-39) U/L ALT 91 H (7-52) U/L Alkaline Phosphatase 112 H (34-104) U/L Troponin I 0.00 (<0.04) ng/mL Total Protein 7.5 (6.4-8.9) g/dL Albumin 4.6 (3.2-5.2) g/dL Globulin 2.9 (2-4) g/dL Albumin/Globulin Ratio 1.6 (1-3) Result Diagrams: 02/20/19 14:19 02/20/19 14:19 Lab Statement: Any lab studies that have been ordered have been reviewed, and results considered in the medical decision making process. - Radiology CXR Radiology Interpretation Completed By: Radiologist Summary of Radiographic Findings: IMPRESSION: NO EVIDENCE FOR ACUTE DISEASE. THIS REPORT WAS REVIEWED BY DR. SANTOS. - EKG 1404 Cardiac Rate: NL - rate of 84 BPM EKG Rhythm: Sinus Rhythm Summary of EKG Findings: EKG showed NSR with rate of 84 BPM, no STEMI. ED physician has reviewed and interpreted this EKG. Re-Evaluation - Re-Evaluation First Eval Re-Evaluation Time: 18:10 Comment: Admission was recommended to the patient. However, he declined. He states that he feels better, but does have some SOB after exertion still, and is noted to be 92 on RA with exertion. Wheeze is improved. Sinus CT results previously done were discussed with the patient. Course/Dx - Course Course Of Treatment: Patient is a 53 y/o M w/ Hx of COPD who presents to [facility] with complaints of SOB. He states that the Wednesday before 2018, he had been having nasal discharge. He was evaluated by medical provider, who prescribed him azithromycin. Antibiotic provided no relief in Sx. He was evaluated once more and prescribed a ten-day antibiotic with ten days of prednisone. He reports some relief with these medications, but Sx were still present. PCP ordered sinus CT, which he had done six days ago. He claims that he was found to have a fungal infection in his sinuses and that he needs to follow up with ENT. Over the past few days, patient has had increased fatigue and SOB. SOB is exacerbated by exertion. He notes a minimal cough and endorses wheezes. He states that he has had chest tightness as well for the past few days , with its worst being yesterday, but states that he has not had any today. He denies fever, chills, sweats, body aches, pain, tingling, or numbness in extremities or jaws. He reports no Hx of HTN, HLD, or diabetes. FMHx of cardiac disease is noted. He is a current smoker and reports occasional alcohol consumption. On physical exam, inspiratory and expiratory wheezes are noted. CXR IMPRESSION: NO EVIDENCE FOR ACUTE DISEASE. EKG showed NSR with rate of 84 BPM, no STEMI. Bloodwork was obtained. Abnormal values include MCV 96, MCH 33, absolute monos 0.9, absolute eos 2.8, sodium 134, carbon dioxide 21, AST 55, ALT 91, alk phos 112. First and second trop were negative. During ED course, patient received duoneb x2 and decadron 8 mg IV SLOW PUSH. Admission was recommended to the patient. However, he declined. He states that he feels better , but does have some SOB after exertion still, and is noted to be 92 on RA with exertion. Wheeze is improved. Sinus CT results previously done were discussed with the patient. Patient was discharged to home, he will follow up with PCP and ENT. - Diagnoses Provider Diagnoses: COPD exacerbation, Pansinusitis Discharge ED - Sign-Out/Discharge Documenting (check all that apply): Patient Departure - discharge Patient Received Moderate/Deep Sedation with Procedure: No - Discharge Plan Condition: Stable Disposition: HOME Prescriptions: DOXYcycline CAP(*) [DOXYcycline 100MG CAP(*)] 100 mg PO BID #14 cap DOXYcycline CAP(*) [DOXYcycline 100MG CAP(*)] 100 mg PO BID #14 cap methylPREDNISolone [Medrol] 4 mg PO DAILY #1 tab.ds.pk methylPREDNISolone [Medrol] 4 mg PO DAILY #1 tab.ds.pk Patient Education Materials: Sinusitis (ED), COPD (Chronic Obstructive Pulmonary Disease) (ED) Referrals: Gustabo Jauregui MD [Primary Care Provider] - 3 Days Additional Instructions: PLEASE RETURN TO ED FOR ANY NEW OR WORSENING SYMPTOMS. PLEASE FOLLOW UP WITH YOUR PRIMARY CARE PHYSICIAN AND ENT DOCTOR IN 2-3 DAYS. - Attestation Statements Document Initiated by Scribe: Yes Documenting Scribe: POORNIMA JIMENEZ Provider For Whom Danieleibe is Documenting (Include Credential): MILEY SANTOS MD Scribe Attestation: POORNIMA Lee, scribed for MILEY SANTOS MD on 02/20/19 at 1853. Status of Scribe Document: Ready
[2019-02-20 18:24] VITALS: BP 137/84
== END 2019-02-20 18:17 | disposition home or self-care (01) ==
LOC: ED 12:00
DX: J44.1 Chronic obstructive pulmonary disease with (acute) exacerbation (principal); J32.4 Chronic pansinusitis; Z88.1 Allergy status to other antibiotic agents; Z88.0 Allergy status to penicillin; Z88.8 Allergy status to other drugs, medicaments and biological substances; Z91.048 Other nonmedicinal substance allergy status; F17.290 Nicotine dependence, other tobacco product, uncomplicated
CPT/HCPCS: 36415; 71045; 80053; 83605; 84484; 85025; 87040; 93005; 96374; 99283; A9270-GY; J1100